=== PATIENT | female | born 2000 | race African-American/Black ===

== ENCOUNTER 2023-01-08 09:03 | Emergency (ER) | payer MEDICAID, SELFPAY ==
[2023-01-08 10:20] LABS: #Eosinphils 0.2 10x3/uL (0.0-0.5); #Monocytes 0.6 10x3/uL (0.0-1.1); #Neutrophils 12.5 10x3/uL (1.5-8.4); %Basophils 0.1 % (0.0-2.0); %Eosinophils 1.1 % (0.0-6.0); %Lymphocytes 9.8 % (18.0-47.0); %Monocytes 3.9 % (0.0-10.0); %Neutrophils 84.6 % (40.0-75.0); Hemoglobin 11.6 g/dL (12.0-15.5); Mean Corpuscular HGB CONC 32.4 g/dL (32.0-36.0); Mean Corpuscular Hemoglobin 28.4 pg (27.0-33.0); Mean Corpuscular Volume 87.5 fl (81.6-98.3); Mean Platelet Volume 10.8 fl (7.4-10.4); Platelet Count 284 10x3/uL (150-450); RBC Distribution Width 12.3 % (11.5-14.5); Red Blood Cell (RBC) Count 4.09 10x6/uL (3.90-5.03); White Blood Cell (WBC) Count 14.8 10x3/uL (3.5-10.5)
[2023-01-08 10:23] LABS: ALT (SGPT) 10 U/L (8-55); AST (SGOT) 16 U/L (5-34); Albumin 4.3 g/dL (3.5-5.0); Alkaline Phosphatase 69 U/L (40-110); Anion Gap 14 mmol/L (10-20); BUN (Urea Nitrogen) 11 mg/dL (7.0-18.7); Bilirubin, Total 0.3 mg/dL (0.2-1.2); Calc. Creatinine Clearance 0 mL/min (70-130); Calcium 9.4 mg/dL (7.8-10.44); Carbon Dioxide 22 mmol/L (22-29); Chloride 104 mmol/L (98-107); Estimated GFR 111; Globulin 3.5 g/dL (2.4-3.5); Glucose 98 mg/dL (70-105); Potassium 3.5 mmol/L (3.5-5.1); Protein, Total 7.8 g/dL (6.0-8.3); Sodium 136 mmol/L (136-145)
[2023-01-08 10:28] LABS: Bilirubin Neg (Negative); Blood, Urine 10 (Negative); Glucose, Urine (Dipstick) Normal (Negative); Ketone, Urine 150 mg/dL (Negative); Leukocyte 25 (Negative); Nitrite Negative (Negative); Protein, Urine (Dipstick) 30 mg/dl (Neg-Trace); Specific Gravity, Urine 1.015 (1.005-1.030)
[2023-01-08 10:32] LABS: Clarity Slightly Cloudy (Clear)
[2023-01-08 10:38] LABS: Bacteria/HPF 1+ HPF (None Seen); RBC/HPF 0-3 HPF (0-3)
[2023-01-08 10:39] LABS: Mucous/LPF 4+ LPF (<2+)
[2023-01-08 21:06] LABS: Chlamydia by PCR Not Detected (NotDetected); GC by PCR Not Detected (NotDetected)
== END 2023-01-08 11:47 | disposition home or self-care (01) ==
LOC: CSHERS 09:03
DX: O20.0 Threatened abortion (principal); Z3A.01 Less than 8 weeks gestation of pregnancy
CPT/HCPCS: 36415; 76856; 80053; 81003; 81015; 84702; 85025; 86900; 86901; 87480; 87491; 87510; 87591; 87660

== ENCOUNTER 2023-01-20 08:14 | Emergency (ER) | payer SELFPAY ==
[2023-01-20] MEDS ORDERED: diphenhydrAMINE 50 MG/ML VIAL ONE (08:48)
[2023-01-20] MEDS ORDERED: Metoclopramide HCl 10 MG/2 ML VIAL ONE (08:48)
[2023-01-20 09:16] LABS: #Monocytes 0.5 10x3/uL (0.0-1.1); #Neutrophils 10.8 10x3/uL (1.5-8.4); %Basophils 0.2 % (0.0-2.0); %Eosinophils 0.1 % (0.0-6.0); %Lymphocytes 9.8 % (18.0-47.0); %Monocytes 4.1 % (0.0-10.0); %Neutrophils 85.5 % (40.0-75.0); Mean Corpuscular HGB CONC 32.4 g/dL (32.0-36.0); Mean Corpuscular Hemoglobin 28.1 pg (27.0-33.0); Mean Corpuscular Volume 86.7 fl (81.6-98.3); Mean Platelet Volume 10.1 fl (7.4-10.4); Platelet Count 313 10x3/uL (150-450); RBC Distribution Width 12.2 % (11.5-14.5); Red Blood Cell (RBC) Count 4.27 10x6/uL (3.90-5.03); White Blood Cell (WBC) Count 12.6 10x3/uL (3.5-10.5)
[2023-01-20 09:26] LABS: BHCG - Serum POSITIVE (NEGATIVE); Pregs Control Background? CLEAR/WHITE (CLR/WHITE); Pregs Control Bar Appear? YES (CONTROL BAR)
[2023-01-20 09:30] LABS: ALT (SGPT) 8 U/L (8-55); AST (SGOT) 13 U/L (5-34); Albumin 4.2 g/dL (3.5-5.0); Alkaline Phosphatase 60 U/L (40-110); Anion Gap 13 mmol/L (10-20); BUN (Urea Nitrogen) 9 mg/dL (7.0-18.7); Bilirubin, Total 0.3 mg/dL (0.2-1.2); Calc. Creatinine Clearance 0 mL/min (70-130); Calcium 9.4 mg/dL (7.8-10.44); Carbon Dioxide 21 mmol/L (22-29); Chloride 101 mmol/L (98-107); Estimated GFR 109; Globulin 3.6 g/dL (2.4-3.5); Glucose 134 mg/dL (70-105); Magnesium 1.9 mg/dL (1.6-2.6); Potassium 3.2 mmol/L (3.5-5.1); Protein, Total 7.8 g/dL (6.0-8.3); Sodium 132 mmol/L (136-145)
[2023-01-20 11:18] LABS: Bilirubin Neg (Negative); Blood, Urine Negative (Negative); Clarity Clear (Clear); Glucose, Urine (Dipstick) Normal (Negative); Ketone, Urine 15 mg/dL (Negative); Leukocyte 25 (Negative); Nitrite Negative (Negative); Protein, Urine (Dipstick) Negative (Neg-Trace); Specific Gravity, Urine 1.005 (1.005-1.030); Urobilinogen Normal mg/dL (Less than 2)
[2023-01-20 11:38] LABS: Bacteria/HPF 1+ HPF (None Seen); RBC/HPF 0-3 HPF (0-3); WBC/HPF 0-3 HPF (0-3)
== END 2023-01-20 11:58 | disposition home or self-care (01) ==
LOC: CSHERS 08:14
DX: O21.8 Other vomiting complicating pregnancy (principal); O99.891 Other specified diseases and conditions complicating pregnancy; R82.71 Bacteriuria; Z3A.09 9 weeks gestation of pregnancy
CPT/HCPCS: 76802; 76856; 80053; 81003; 81015; 83735; 84702; 84703; 85025; 87086; 96365; 96375; J1200; J2765

== ENCOUNTER 2023-02-23 22:00 | Emergency (ER) | payer OTHER ==
[2023-02-23 23:10] LABS: #Eosinphils 0.1 10x3/uL (0.0-0.5); #Monocytes 0.7 10x3/uL (0.0-1.1); #Neutrophils 8.3 10x3/uL (1.5-8.4); %Basophils 0.1 % (0.0-2.0); %Eosinophils 0.5 % (0.0-6.0); %Monocytes 6.1 % (0.0-10.0); %Neutrophils 73.9 % (40.0-75.0); Hemoglobin 10.5 g/dL (12.0-15.5); Mean Corpuscular HGB CONC 32.6 g/dL (32.0-36.0); Mean Corpuscular Hemoglobin 28.2 pg (27.0-33.0); Mean Corpuscular Volume 86.3 fl (81.6-98.3); Mean Platelet Volume 10.2 fl (7.4-10.4); Platelet Count 277 10x3/uL (150-450); RBC Distribution Width 12.1 % (11.5-14.5); Red Blood Cell (RBC) Count 3.73 10x6/uL (3.90-5.03); White Blood Cell (WBC) Count 11.2 10x3/uL (3.5-10.5)
== END 2023-02-23 23:39 | disposition home or self-care (01) ==
LOC: CSHERS 22:00
DX: O44.12 Complete placenta previa with hemorrhage, second trimester (principal); Z3A.15 15 weeks gestation of pregnancy
CPT/HCPCS: 36415; 76802; 76856; 84702; 85025

== ENCOUNTER 2023-05-22 16:22 | Day surgery (SDC) | payer OTHER ==
[2023-05-22 17:05] VITALS: BMI 30.9
[2023-05-22] MEDS ORDERED: hydrALAZINE 20 MG/ML VIAL SLOW IVP PRN (17:08)
== END 2023-05-22 20:19 | disposition short-term general hospital (02) ==
LOC: CSHLD/OP 16:22
PROVIDERS: ATTEND Family Medicine
DX: O30.042 Twin pregnancy, dichorionic/diamniotic, second trimester (principal); Z3A.26 26 weeks gestation of pregnancy
CPT/HCPCS: 96374; 99283

== ENCOUNTER 2023-06-19 18:58 | Inpatient (IN) | payer OTHER ==
[~2023-06-19 18:58] MED LIST: Bupivacaine 0.25% HCL 30 ML VIAL ONE; ePHEDrine Sulfate 50 MG/10 ML VIAL ONE
[2023-06-19 19:44] VITALS: BMI 33.3
[2023-06-19] MEDS ORDERED: hydrALAZINE 20 MG/ML VIAL SLOW IVP PRN ×2 (20:03→20:20)
[2023-06-19] MEDS ORDERED: Promethazine HCl 25 MG/ML VIAL IM PRN (20:20)
[2023-06-19] MEDS ORDERED: Acetaminophen 500 MG TAB PO PRN (20:20)
[2023-06-19] MEDS ORDERED: Diphenoxylate HCl/Atropine Tablet PO PRN (20:20)
[2023-06-19] MEDS ORDERED: Misoprostol 200 MCG TAB PR PRN (20:20)
[2023-06-19] MEDS ORDERED: Methylergonovine 0.2 MG/ML VIAL IM PRN (20:20)
[2023-06-19] MEDS ORDERED: Ondansetron PF 4 MG/2 ML Vial IVP PRN (20:20)
[2023-06-19] MEDS ORDERED: Carboprost 250 MCG/ML AMP IM PRN (20:20)
[2023-06-19] MEDS ORDERED: NS w/ Oxytocin 30 units 500 ML IV SCH (20:30)
[2023-06-19] MEDS ORDERED: Acetaminophen/Codeine 30-300mg Tablet PO PRN (20:34)
[2023-06-19] MEDS ORDERED: HYDROcodone/Acetaminophen 5/325 mg Tablet PO PRN (20:34)
[2023-06-19] MEDS ORDERED: Lidocaine 1% (PF) 30 ML VIAL SC PRN (20:34)
[2023-06-19] MEDS ORDERED: Ibuprofen 800 MG TAB PO PRN (20:34)
[2023-06-19] MEDS ORDERED: Betamet Acet/Betamet Na Ph 30 MG/5 ML VIAL IM SCH (20:45)
[2023-06-19] MEDS ORDERED: Penicillin G Potassium 5 MILL.UNITS in Sodium Chloride 0.9% 100 ML IVPB SCH (20:45)
[2023-06-19 20:55] LABS: Hematocrit 29.7 % (34.9-44.5); Hemoglobin 9.3 g/dL (12.0-15.5); Mean Corpuscular HGB CONC 31.3 g/dL (32.0-36.0); Mean Corpuscular Volume 86.3 fl (81.6-98.3); Mean Platelet Volume 9.8 fl (7.4-10.4); Platelet Count 374 10x3/uL (150-450); RBC Distribution Width 13.8 % (11.5-14.5); Red Blood Cell (RBC) Count 3.44 10x6/uL (3.90-5.03)
[2023-06-19] MEDS ORDERED: Magnesium 2 GM/50 ML(in water) 2 GM in Premix Bag 1 BAG IVPB SCH (21:00)
[2023-06-19] MEDS ORDERED: Magnesium Sulfate 20 gm/500 ml 20 GM/500 ML BAG ONE (21:00)
[2023-06-19] MEDS ORDERED: Magnesium Sulfate 4 GM in Sodium Chloride 0.9% 250 ML 250 ML IVPB SCH (21:15)
[2023-06-19 21:28] LABS: HBSAg Index 0.16 S/CO (0-0.99); Hep B Surf Ag - L&D Non-Reactive S/CO (NonReactive)
[2023-06-19 21:30] LABS: Syphilis Antibody Index 17.76 S/CO (<1.00 Non-Reactive)
[2023-06-19 22:02] LABS: Syphilis Antibody INDETERMINATE (Nonreactive)
[2023-06-19 22:39] LABS: Bilirubin Neg (Negative); Blood, Urine Negative (Negative); Clarity Clear (Clear); Glucose, Urine (Dipstick) Normal (Negative); Ketone, Urine Negative (Negative); Leukocyte Negative (Negative); Nitrite Negative (Negative); Protein, Urine (Dipstick) Negative (Neg-Trace); Specific Gravity, Urine 1.015 (1.005-1.030); Urobilinogen Normal mg/dL (Less than 2)
[2023-06-19 23:00] LABS: Bacteria/HPF None Seen HPF (None Seen); RBC/HPF None Seen HPF (0-3); Squamous Epithelial 0-3 HPF (0-3); WBC/HPF 0-3 HPF (0-3)
[2023-06-19] MEDS ORDERED: fentaNYL/Ropivacaine Epidural 100 ML ONE (23:12)
[2023-06-19] MEDS: Lactated Ringer's 1,000 ML IV SCH (23:45)
[2023-06-20] MEDS ORDERED: Acetaminophen 325 MG TAB PO PRN
[2023-06-20] MEDS ORDERED: ePHEDrine Sulfate 50 MG/10 ML VIAL SLOW IVP PRN
[2023-06-20] MEDS ORDERED: fentaNYL 2 mcg/Ropivacaine 0.2% Epidural 100 ML CADD EPIDURAL SCH
[2023-06-20] MEDS ORDERED: Lactated Ringer's 500 ML IV PRN
[2023-06-20] MEDS: Penicillin G 2.5 MILL.units 2.5 MILL.UNITS in Premix Bag 1 BAG IVPB SCH ×3 (01:28→10:04)
[2023-06-20] MEDS ORDERED: Magnesium Sulfate 20 gm/500 ml 20 GM/500 ML BAG ONE (05:52)
[2023-06-20] MEDS ORDERED: Sodium Chloride 0.9% 100 ML ONE (07:40)
[2023-06-20] MEDS ORDERED: CEFAZOLIN 2 GM VIAL ONE (07:40)
[2023-06-20] MEDS ORDERED: Famotidine/PF 20 mg/2ml Vial ONE (07:40)
[2023-06-20] MEDS ORDERED: Azithromycin 500 MG VIAL ONE (07:40)
[2023-06-20] MEDS ORDERED: Chloroprocaine 3% PF 20 ML VIAL ONE (07:51)
[2023-06-20] MEDS ORDERED: Oxytocin 10 UNITS/ML VIAL ONE ×2 (07:51→08:40)
[2023-06-20] MEDS ORDERED: Morphine PF 10 MG/10 ML VIAL ONE (07:51)
[2023-06-20] MEDS ORDERED: Phenylephrine 40 MG/NS 250 ML 250 ML ONE (07:52)
[2023-06-20] MEDS ORDERED: Ondansetron PF 4 MG/2 ML Vial ONE (07:53)
[2023-06-20] MEDS ORDERED: PHENYLEPHRINE-NS 100 MCG/ML 10 ML SYRINGE ONE (08:04)
[2023-06-20] MEDS ORDERED: Bupivacaine 0.25% HCL 30 ML VIAL ONE (08:11)
[2023-06-20] MEDS ORDERED: Dexamethasone 4 mg/ml Vial ONE (08:18)
[2023-06-20] MEDS ORDERED: Metoclopramide HCl 10 MG/2 ML VIAL ONE (08:24)
[2023-06-20] MEDS ORDERED: Promethazine HCl 25 MG/ML VIAL ONE (08:24)
[2023-06-20] MEDS ORDERED: diphenhydrAMINE 50 MG/ML VIAL IVP PRN ×2 (09:01)
[2023-06-20] MEDS ORDERED: Moisturizing Cream (Eucerin) 113 GM JAR TOP PRN ×2 (09:01)
[2023-06-20] MEDS ORDERED: Promethazine HCl 25 MG SUPP PR PRN (09:01)
[2023-06-20] MEDS ORDERED: Naloxone HCl 0.4 mg/ml Vial IVP PRN ×4 (09:01)
[2023-06-20] MEDS ORDERED: Fentanyl 50 MCG/1 ML VIAL SLOW IVP PRN (09:01)
[2023-06-20] MEDS ORDERED: Meperidine HCl/PF 25 MG/ML VIAL SLOW IVP PRN (09:01)
[2023-06-20] MEDS ORDERED: Naloxone HCl 0.4 mg/ml Vial IV PRN (09:01)
[2023-06-20] MEDS ORDERED: Ketorolac Tromethamine 30 MG/ML VIAL IVP PRN (09:01)
[2023-06-20] MEDS ORDERED: Promethazine HCl 25 MG/ML VIAL IM PRN ×2 (09:01)
[2023-06-20] MEDS ORDERED: Ondansetron PF 4 MG/2 ML Vial IVP PRN ×3 (09:01→11:18)
[2023-06-20] MEDS ORDERED: Ondansetron HCl/PF 4 MG/2 ML Vial IVP PRN (09:01)
[2023-06-20] MEDS ORDERED: Ketorolac Tromethamine 30 MG/ML VIAL IVP SCH (09:15)
[2023-06-20] MEDS ORDERED: Communication Order-Pharmacy FS SCH ×2 (09:15)
[2023-06-20] MEDS: Lactated Ringer's 1,000 ML IV SCH (10:03)
[2023-06-20] MEDS ORDERED: fentaNYL 50 mcg/mL 1 mL Vial ONE (10:35)
[2023-06-20] MEDS ORDERED: hydrALAZINE 20 MG/ML VIAL SLOW IVP PRN (11:18)
[2023-06-20] MEDS ORDERED: Lanolin Ointment 7 GM TUBE TOP PRN (11:18)
[2023-06-20] MEDS ORDERED: Boostrix 0.5 ML (Tdap) VIAL (>/=7 yrs of age) IM ONE (11:18)
[2023-06-20] MEDS ORDERED: Bisacodyl 10 MG SUPP PR PRN (11:18)
[2023-06-20] MEDS ORDERED: diphenhydrAMINE 25 MG CAP PO PRN (11:18)
[2023-06-20] MEDS ORDERED: Meperidine HCl/PF 25 MG/ML VIAL ONE (11:21)
[2023-06-20] MEDS ORDERED: fentaNYL 50 mcg/mL 1 mL Vial SLOW IVP SCH (14:30)
[2023-06-20] MEDS: Ketorolac Tromethamine 30 MG/ML VIAL IVP SCH ×2 (16:09→22:06)
[2023-06-20] MEDS: Simethicone Chewable 80 MG TAB PO PRN (21:03)
[2023-06-20] MEDS: Ferrous Sulfate 325 MG TAB PO SCH (21:04)
[2023-06-20] MEDS: Docusate 100 MG CAP PO SCH (21:04)
[2023-06-20] MEDS: HYDROcodone/Acetaminophen 5/325 mg Tablet PO PRN (21:04)
[2023-06-20] MEDS ORDERED: Meperidine HCl/PF 25 MG/ML VIAL IM PRN (21:30)
[2023-06-21] MEDS: HYDROcodone/Acetaminophen 5/325 mg Tablet PO PRN ×6 (03:25→21:05)
[2023-06-21] MEDS: Simethicone Chewable 80 MG TAB PO PRN (03:25)
[2023-06-21] MEDS: Ketorolac Tromethamine 30 MG/ML VIAL IVP SCH ×2 (04:15→10:54)
[2023-06-21 04:21] LABS: Hematocrit 25.1 % (34.9-44.5); Hemoglobin 7.9 g/dL (12.0-15.5); Mean Corpuscular HGB CONC 31.5 g/dL (32.0-36.0); Mean Corpuscular Hemoglobin 26.9 pg (27.0-33.0); Mean Corpuscular Volume 85.4 fl (81.6-98.3); Mean Platelet Volume 10.1 fl (7.4-10.4); Platelet Count 329 10x3/uL (150-450); RBC Distribution Width 13.4 % (11.5-14.5); Red Blood Cell (RBC) Count 2.94 10x6/uL (3.90-5.03); White Blood Cell (WBC) Count 22.8 10x3/uL (3.5-10.5)
[2023-06-21] MEDS: Ferrous Sulfate 325 MG TAB PO SCH ×2 (08:00→21:04)
[2023-06-21] MEDS: Prenatal Vitamin 1 TAB PO SCH (08:00)
[2023-06-21] MEDS: Docusate 100 MG CAP PO SCH ×2 (08:00→21:04)
[2023-06-21] MEDS: Ibuprofen 800 MG TAB PO SCH ×2 (14:17→21:04)
[2023-06-22] MEDS: HYDROcodone/Acetaminophen 5/325 mg Tablet PO PRN ×7 (01:00→23:54)
[2023-06-22] MEDS: Ibuprofen 800 MG TAB PO SCH ×3 (05:30→21:13)
[2023-06-22] MEDS: Ferrous Sulfate 325 MG TAB PO SCH ×2 (09:09→21:13)
[2023-06-22] MEDS: Docusate 100 MG CAP PO SCH ×2 (09:09→21:13)
[2023-06-22] MEDS: Prenatal Vitamin 1 TAB PO SCH (09:09)
[2023-06-23] MEDS: HYDROcodone/Acetaminophen 5/325 mg Tablet PO PRN ×3 (05:06→21:20)
[2023-06-23] MEDS: Ibuprofen 800 MG TAB PO SCH ×3 (05:06→21:20)
[2023-06-23] MEDS: Docusate 100 MG CAP PO SCH ×2 (08:04→21:21)
[2023-06-23] MEDS: Ferrous Sulfate 325 MG TAB PO SCH ×2 (08:04→21:21)
[2023-06-23] MEDS: Prenatal Vitamin 1 TAB PO SCH (08:04)
[2023-06-24] MEDS: Ibuprofen 800 MG TAB PO SCH ×2 (05:41→13:51)
[2023-06-24] MEDS: HYDROcodone/Acetaminophen 5/325 mg Tablet PO PRN ×2 (05:41→13:51)
[2023-06-24 07:39] VITALS: BP 111/65; TEMP 98
[2023-06-24] MEDS: Ferrous Sulfate 325 MG TAB PO SCH (08:36)
[2023-06-24] MEDS: Prenatal Vitamin 1 TAB PO SCH (08:36)
[2023-06-24] MEDS: Docusate 100 MG CAP PO SCH (08:36)
== END 2023-06-24 19:25 | disposition home or self-care (01) | DRG 788 ==
LOC: CSHLD/OP 18:58 → CSHLD 20:31 → CSHPED 06-20 11:37
PROVIDERS: ADMIT Family Medicine; ATTEND Family Medicine
PROC: 10D00Z1 Extraction of Products of Conception, Low, Open Approach (ICD-10-PCS; principal; 2023-06-20)
DX: O30.043 Twin pregnancy, dichorionic/diamniotic, third trimester (principal); O76 Abnormality in fetal heart rate and rhythm complicating labor and delivery; O32.2XX2 Maternal care for transverse and oblique lie, fetus 2; Z3A.30 30 weeks gestation of pregnancy; Z37.0 Single live birth
CPT/HCPCS: 36415; 51702; 81001; 83735; 85027; 86593; 86780; 86850; 86900; 86901; 87340; 88307; 99285; J0702; J1100; J1885; J2175; J2274; J2401; J2405; J2540; J2550; J2590; J2765; J3010; J3475; J3490; J7050; J7120; S0020; S0028